=== PATIENT | female | born 1940 | race Caucasian/White ===

== ENCOUNTER 2018-01-27 13:29 | Observation (INO) ==
--- NOTE | 2018-01-27 13:53 | Emergency Department Note ---
Disposition Clinical Impression: Suicidal ideation Cellulitis Qualifiers: Site of cellulitis: unspecified site Qualified Code(s): L03.90 - Cellulitis, unspecified Disposition: Admitted As Inpatient Condition: Good Referrals: NONE,PCP [Primary Care Provider] - Forms: ED Satisfaction Letter Psych HPI - General Chief Complaint: ED Psychiatric Symptoms Stated Complaint: SI, leg pain Time Seen by Provider: 01/27/18 13:31 Source: EMS Mode of arrival: EMS Limitations: no limitations Nursing Notes Reviewed: Yes Vital Signs Reviewed: Yes - History of Present Illness HPI Narrative: 77-year-old female history of psoriasis presents to the ER with a complaint of suicidal ideation and right leg pain. Reports that she has had thoughts of harming herself before and that her son lives with her. She states that her right leg has been red for the last few days. No fevers nausea or vomiting at home. She still reports she has had some thoughts of harming herself. No history of suicide attempt in the past. No auditory or visual hallucinations. No other complaints. Pt complaint: suicidal ideation Onset (ago): day(s) Duration: constant History of similar episodes: No Improves with: none Worsens with: none Alleged intoxication: No Associated Psychiatric Symptoms: suicidal ideation Associated symptoms: Reports: denies other symptoms Traumatic symptoms: denies traumatic injury Treatments prior to arrival: none Self harm or harm to others: admits thoughts of self harm - Related Data Home Medications Medication Instructions Recorded Confirmed Buspirone HCl [Buspar] 10 mg PO BID 01/27/18 01/27/18 Levothyroxine [Synthroid] 100 mcg PO QAM 01/27/18 01/27/18 Lisinopril [Zestril] 5 mg PO DAILY 01/27/18 01/27/18 Melatonin 5 mg PO HS 01/27/18 01/27/18 Allergies Allergy/AdvReac Type Severity Reaction Status Date / Time aspirin AdvReac Nausea Verified 08/20/16 21:36 All systems ED: reviewed and negative except as stated. Constitutional: Denies: fever Cardiovascular: Denies: chest pain Respiratory: Denies: dyspnea Gastrointestinal: Denies: abdominal pain, nausea, vomiting Integumentary: Reports: lesions Past Medical History - Past Medical History Attestation: Yes The following information was validated with the patient. Source: patient Medical history: Reports: hyperlipidemia, hypertension, thyroid disease, other Surgical history: Reports: other Psychiatric history: Reports: anxiety, depression - Social History Smoking Status: Current every day smoker Smokeless Tobacco Status: No Alcohol use: Reports: none Drug use: Reports: none Physical Exam - General Limitations: no limitations General appearance: alert, in no apparent distress - Head Head exam: atraumatic, normocephalic - Eye Eye exam: Present: normal appearance - ENT ENT exam: normal exam - Neck Neck exam: Present: normal inspection - Chest Chest inspection: Present: normal inspection, symmetric chest wall rise - Respiratory Respiratory exam: Present: normal lung sounds bilaterally - Cardiovascular Cardiovascular exam: Present: regular rate, normal rhythm, normal heart sounds - Abdominal Exam Abdominal exam: Present: soft, Non-Tender. Absent: tenderness, distention, rigidity - Extremities Exam Extremities exam: Present: normal inspection, full ROM - Expanded Upper Extremity Exam Shoulder exam: Present: normal inspection, full ROM Arm exam: Present: normal inspection, full ROM Elbow exam: Present: normal inspection, full ROM Forearm/Wrist exam: Present: normal inspection, full ROM Hand exam: Present: normal inspection, full ROM - Expanded Lower Extremity Exam Hip/Pelvis exam: Present: normal inspection, full ROM Upper leg exam: Present: normal inspection, full ROM 1 - Plaque as well as erythema and warmth to the lateral leg Knee exam: Present: normal inspection, full ROM Lower leg exam: Present: normal inspection, full ROM Ankle exam: Present: normal inspection, full ROM Foot/toe exam: Present: normal inspection, full ROM - Skin Skin exam: Present: warm, dry, other (Plaques on the arms and legs) Course Course Narrative: Patient seen and examined. Vital signs reviewed. Continues to endorse some thoughts of suicidal ideation. Plan for labs for psychiatric evaluation. She also will require treatment for cellulitis of her right leg. - Consultations Consultation #1: Spoke with 1A requesting consult for suicidal ideation. Consult placed, admitted to hospitalist. Vital Signs Temperature 97.6 F 01/27/18 13:43 Pulse Rate 88 01/27/18 13:43 Respiratory Rate 18 01/27/18 13:43 Blood Pressure 157/81 01/27/18 13:43 O2 Sat by Pulse Oximetry 98 01/27/18 13:43 Temperature 97.6 F 01/27/18 13:43 Pulse Rate 88 01/27/18 13:43 Respiratory Rate 18 01/27/18 13:43 Blood Pressure 157/81 01/27/18 13:43 O2 Sat by Pulse Oximetry 98 01/27/18 13:43 Oxygen Delivery Oxygen Delivery Room Air Psych - MDM Narrative Medical decision making narrative: 77-year-old female presents with suicidal ideation and right leg cellulitis. Patient also demonstrates UTI. CT head negative. Labs reviewed. Psychiatric consult placed. Patient pink slipped for suicidal ideation. Admitted to the hospitalist service. - Lab Data Lab results reviewed: Yes I reviewed the patient's lab results. Result diagrams: 01/27/18 14:07 01/27/18 14:07 Lab Results 01/27/18 01/27/18 01/27/18 Range/Units 13:36 13:36 14:07 WBC 5.6 (4.3-11.1) K/mcL RBC 4.08 (3.82-4.97) M/mcL Hgb 13.0 (11.5-15.4) g/dL Hct 38.6 (35.3-44.9) % MCV 94.6 (83.0-100.0) fL MCH 31.9 (28.0-33.3) pg MCHC 33.7 (31.6-35.5) g/dL RDW 13.2 (11.5-14.5) % Plt Count 205 (140-400) K/mcL MPV 9.3 L (9.4-12.4) fL Immature Gran % 0.4 (0-4) % Seg Neutrophils % 56.5 % Lymphocytes % 27.9 % Monocytes % 11.5 % Eosinophils % 3.2 % Basophils % 0.5 % Neutrophils # 3.1 (1.6-8.9) K/mcL Lymphocytes # 1.6 (0.6-4.6) K/mcL Monocytes # 0.6 (0.0-1.3) K/mcL Eosinophils # 0.2 (0.0-0.6) K/mcL Basophils # 0.0 (0.0-0.2) K/mcL Sodium (136-145) mEq/L Potassium (3.5-5.1) mEq/L Chloride (98-107) mEq/L Carbon Dioxide (23-29) mEq/L BUN (8-23) mg/dL Creatinine (0.60-1.20) mg/dL Est GFR ( Amer) (> 60) Est GFR (Non-Af Amer) (> 60) BUN/Creatinine Ratio (6-26) Glucose (70-105) mg/dL Calculated Osmolality (280-300) Calcium (8.6-10.3) mg/dL TSH (0.340-5.600) mcIU/mL Urine Color Yellow (Yellow) Urine Clarity Clear (Clear) Urine pH 6.0 (5.0-8.0) pH Units Ur Specific [place] 1.025 (1.010-1.025) Urine Protein Trace (Neg-Trace) mg/dL Urine Glucose (UA) Normal (Normal) mg/dL Urine Ketones Negative (Negative) mg/dL Urine Blood Trace H (Negative) Urine Nitrite Negative (Negative) Urine Bilirubin Negative (Negative) Urine Urobilinogen Normal (Normal) mg/dL Ur Leukocyte Esterase Moderate H (Negative) Urine Microscopic RBC 0-3 (0-3) per hpf Urine Microscopic WBC 30-50 H (0-3) per hpf Ur Squamous Epith Cells None Seen (None-Few) per lpf Urine Bacteria Many H (None-Few) per hpf Hyaline Casts None Seen (None-Few) per lpf Salicylates (15.0-30.0) mg/dL Urine Opiates Screen Negative (Fdnknl=171) ng/mL Acetaminophen (10-20) mcg/mL Ur Barbiturates Screen Negative (Zpxaut=252) ng/mL Ur Phencyclidine Scrn Negative (Cutoff=25) ng/mL Ur Amphetamines Screen Negative (Vlrdlg=0895) ng/mL U Benzodiazepines Scrn Negative (Vxiugx=715) ng/mL Urine Cocaine Screen Negative (Cutoff= 300) ng/mL U Marijuana (THC) Screen Negative (Cutoff = 50) ng/mL Ur Drug Screen Interp See Below Ethyl Alcohol (Less than 10) mg/dL 01/27/18 Range/Units 14:07 WBC (4.3-11.1) K/mcL RBC (3.82-4.97) M/mcL Hgb (11.5-15.4) g/dL Hct (35.3-44.9) % MCV (83.0-100.0) fL MCH (28.0-33.3) pg MCHC (31.6-35.5) g/dL RDW (11.5-14.5) % Plt Count (140-400) K/mcL MPV (9.4-12.4) fL Immature Gran % (0-4) % Seg Neutrophils % % Lymphocytes % % Monocytes % % Eosinophils % % Basophils % % Neutrophils # (1.6-8.9) K/mcL Lymphocytes # (0.6-4.6) K/mcL Monocytes # (0.0-1.3) K/mcL Eosinophils # (0.0-0.6) K/mcL Basophils # (0.0-0.2) K/mcL Sodium 140 (136-145) mEq/L Potassium 3.8 (3.5-5.1) mEq/L Chloride 108 H (98-107) mEq/L Carbon Dioxide 24 (23-29) mEq/L BUN 19 (8-23) mg/dL Creatinine 0.83 (0.60-1.20) mg/dL Est GFR ( Amer) > 60 (> 60) Est GFR (Non-Af Amer) > 60 (> 60) BUN/Creatinine Ratio 23 (6-26) Glucose 98 (70-105) mg/dL Calculated Osmolality 292 (280-300) Calcium 8.9 (8.6-10.3) mg/dL TSH 0.036 L (0.340-5.600) mcIU/mL Urine Color (Yellow) Urine Clarity (Clear) Urine pH (5.0-8.0) pH Units Ur Specific [place] (1.010-1.025) Urine Protein (Neg-Trace) mg/dL Urine Glucose (UA) (Normal) mg/dL Urine Ketones (Negative) mg/dL Urine Blood (Negative) Urine Nitrite (Negative) Urine Bilirubin (Negative) Urine Urobilinogen (Normal) mg/dL Ur Leukocyte Esterase (Negative) Urine Microscopic RBC (0-3) per hpf Urine Microscopic WBC (0-3) per hpf Ur Squamous Epith Cells (None-Few) per lpf Urine Bacteria (None-Few) per hpf Hyaline Casts (None-Few) per lpf Salicylates < 2.5 L (15.0-30.0) mg/dL Urine Opiates Screen (Lmytzm=855) ng/mL Acetaminophen < 10 L (10-20) mcg/mL Ur Barbiturates Screen (Rbuqab=167) ng/mL Ur Phencyclidine Scrn (Cutoff=25) ng/mL Ur Amphetamines Screen (Qdipqu=1002) ng/mL U Benzodiazepines Scrn (Opkpqp=079) ng/mL Urine Cocaine Screen (Cutoff= 300) ng/mL U Marijuana (THC) Screen (Cutoff = 50) ng/mL Ur Drug Screen Interp Ethyl Alcohol < 10 (Less than 10) mg/dL - Radiology Data Radiology results reviewed: Yes I reviewed the patient's radiology results. Chest X-Ray 01/27/18 15:21 IMPRESSION: No evidence of acute cardiopulmonary disease. D/ / 01/27/2018 16:19:41 Teto Patel MD / earcierra Interpreting Provider: Teto Patel MD Head CT 01/27/18 15:21 IMPRESSION: No acute intracranial abnormality. Oawc-hx-zbygjath generalized atrophy appropriate for age. Atrophy somewhat more prominent involving the temporal lobes. Sudi-st-eqwnmhkc chronic ischemic changes also age-appropriate. D/ / Devonte Iglesias MD / Devonte Iglesias MD Interpreting Provider: Devonte Iglesias MD Psychiatric Medical Clearance - Medical Clearance Checklist Medical History: No Social History Section defined Current Vitals: Last Vital Signs Temp 97.6 F 01/27/18 13:43 Pulse 88 01/27/18 13:43 Resp 18 01/27/18 13:43 BP 157/81 01/27/18 13:43 Pulse Ox 98 01/27/18 13:43 Psychiatric Lab Panel: Drug Levels and Toxicity 01/27/18 01/27/18 13:36 14:07 Urine Opiates Screen Negative Acetaminophen < 10 L Ur Barbiturates Screen Negative Ur Phencyclidine Scrn Negative Ur Amphetamines Screen Negative U Benzodiazepines Scrn Negative Urine Cocaine Screen Negative U Marijuana (THC) Screen Negative Ethyl Alcohol < 10 Abnormal Labs: Abnormal lab results MPV 9.3 fL (9.4-12.4) L 01/27/18 14:07 Chloride 108 mEq/L (98-107) H 01/27/18 14:07 TSH 0.036 mcIU/mL (0.340-5.600) L 01/27/18 14:07 Urine Blood Trace (Negative) H 01/27/18 13:36 Ur Leukocyte Esterase Moderate (Negative) H 01/27/18 13:36 Urine Microscopic WBC 30-50 per hpf (0-3) H 01/27/18 13:36 Urine Bacteria Many per hpf (None-Few) H 01/27/18 13:36 Salicylates < 2.5 mg/dL (15.0-30.0) L 01/27/18 14:07 Acetaminophen < 10 mcg/mL (10-20) L 01/27/18 14:07 Statement of Medical Clearance: I have evaluated the patient, reviewed diagnostic information, and certify that the patient's medical condition is sufficiently stable that transfer to the psychiatric unit does not pose a significant risk of deterioration. Alden - Alden Situation: Demographics, MOA Background: Presenting Complaint, Relevant PMH, Meds, & Allergies Assessment: Course and respsone to treatment, Exam Concerns, Patient/Family Expectation, Pertinant Lab Results Recommendation: Barrier(s) to disposition, Recommendation based on pending studies, treatments, or consults Alden Report Given to: Dr. Ivelisse Ruano Repor Time: 17:31
[2018-01-27 14:23] LABS: Basophils % 0.5 %; Eosinophils # 0.2 K/mcL (0.0-0.6); Eosinophils % 3.2 %; Hematocrit 38.6 % (35.3-44.9); Immature Granulocytes % 0.4 % (0-4); Lymphocytes # 1.6 K/mcL (0.6-4.6); Lymphocytes % 27.9 %; Mean Corpuscular HGB Conc 33.7 g/dL (31.6-35.5); Mean Corpuscular Hemoglobin 31.9 pg (28.0-33.3); Mean Corpuscular Volume 94.6 fL (83.0-100.0); Mean Platelet Volume 9.3 fL (9.4-12.4); Monocytes # 0.6 K/mcL (0.0-1.3); Monocytes % 11.5 %; Neutrophils # 3.1 K/mcL (1.6-8.9); Platelet Count 205 K/mcL (140-400); Red Blood Count 4.08 M/mcL (3.82-4.97); Red Cell Distribution Width 13.2 % (11.5-14.5); Segmented Neutrophils % 56.5 %
[2018-01-27 14:43] LABS: Bilirubin,Urine Negative (Negative); Blood,Urine Trace (Negative); Clarity,Urine Clear (Clear); Color,Urine Yellow (Yellow); Glucose,Urine (UA) Normal (Normal); Ketones,Urine Negative (Negative); Leukocyte Esterase,Urine Moderate (Negative); Nitrite,Urine Negative (Negative); Protein,Urine Trace mg/dL (Neg-Trace); Specific Gravity,Urine 1.025 (1.010-1.025); Urobilinogen,Urine Normal (Normal)
[2018-01-27 14:43] LABS: Acetaminophen < 10 mcg/mL (10-20); BUN/Creatinine Ratio 23 (6-26); Blood Urea Nitrogen 19 mg/dL (8-23); Calcium 8.9 mg/dL (8.6-10.3); Carbon Dioxide 24 mEq/L (23-29); Chloride 108 mEq/L (98-107); Ethanol < 10 mg/dL (Less than 10); Glucose 98 mg/dL (70-105); Osmolality,Calculated 292 (280-300); Potassium 3.8 mEq/L (3.5-5.1); Salicylate < 2.5 mg/dL (15.0-30.0); Sodium 140 mEq/L (136-145); eGFR For Non-African Americans > 60 (> 60)
[2018-01-27 14:49] LABS: Bacteria,Urine Many per hpf (None-Few); Hyaline Casts,Urine None Seen per lpf (None-Few); Squamous Epithelial Cell,Urine None Seen per lpf (None-Few); WBC,Urine 30-50 per hpf (0-3)
[2018-01-27 14:54] LABS: Thyroid Stimulating Hormone 0.036 mcIU/mL (0.340-5.600)
[2018-01-27 14:57] LABS: Amphetamine Screen,Urine Negative ng/mL (Cutoff=1000); Barbiturate Screen,Urine Negative ng/mL (Cutoff=200); Benzodiazepines Screen,Urine Negative ng/mL (Cutoff=200); Cannabinoid Screen,Urine Negative ng/mL (Cutoff = 50); Cocaine Screen,Urine Negative ng/mL (Cutoff= 300); Opiate Screen,Urine Negative ng/mL (Cutoff=300); Phencyclidine Screen,Urine Negative ng/mL (Cutoff=25)
[2018-01-27 15:22] LABS: RBC,Urine 0-3 per hpf (0-3)
[2018-01-27] MEDS ORDERED: cefTRIAXone 1,000 MG in Water for inj. (sterile) 20 ML 10 ML IVP ONE (16:00)
--- NOTE | 2018-01-27 16:05 | Emergency Department Note ---
Disposition Clinical Impression: Suicidal ideation, Cellulitis Disposition: Still a Patient Condition: Fair Referrals: NONE,PCP [Primary Care Provider] - Forms: ED Satisfaction Letter General Adult HPI - General Chief complaint: ED Psychiatric Symptoms Stated complaint: SI, leg pain Time Seen by Provider: 01/27/18 13:31 Source: EMS Mode of arrival: EMS Limitations: no limitations Nursing Notes Reviewed: Yes Vital Signs Reviewed: Yes - History of Present Illness Pain Scale: 0 - Related Data Home Medications Medication Instructions Recorded Confirmed Buspirone HCl [Buspar] 10 mg PO BID 01/27/18 01/27/18 Levothyroxine [Synthroid] 100 mcg PO QAM 01/27/18 01/27/18 Lisinopril [Zestril] 5 mg PO DAILY 01/27/18 01/27/18 Melatonin 5 mg PO HS 01/27/18 01/27/18 Allergies Allergy/AdvReac Type Severity Reaction Status Date / Time aspirin AdvReac Nausea Verified 08/20/16 21:36 Constitutional: Denies: fever Cardiovascular: Denies: chest pain Respiratory: Denies: dyspnea Gastrointestinal: Denies: abdominal pain, nausea, vomiting Integumentary: Reports: lesions Past Medical History - Past Medical History Medical history: Reports: hyperlipidemia, hypertension, thyroid disease, other Surgical history: Reports: other Psychiatric history: Reports: anxiety, depression - Social History Smoking Status: Current every day smoker Smokeless Tobacco Status: No Alcohol use: Reports: none Drug use: Reports: none Physical Exam - General Limitations: no limitations General appearance: alert, in no apparent distress Course Vital Signs Temperature 97.6 F 01/27/18 13:43 Pulse Rate 88 01/27/18 13:43 Respiratory Rate 18 01/27/18 13:43 Blood Pressure 157/81 01/27/18 13:43 O2 Sat by Pulse Oximetry 98 01/27/18 13:43 Temperature 97.6 F 01/27/18 13:43 Pulse Rate 88 01/27/18 13:43 Respiratory Rate 18 01/27/18 13:43 Blood Pressure 157/81 01/27/18 13:43 O2 Sat by Pulse Oximetry 98 01/27/18 13:43 Oxygen Delivery Oxygen Delivery Room Air Medical Decision Making - Lab Data Result diagrams: 01/27/18 14:07 01/27/18 14:07 Lab Results 01/27/18 01/27/1818 Range/Units 13:36 13:36 14:07 WBC 5.6 (4.3-11.1) K/mcL RBC 4.08 (3.82-4.97) M/mcL Hgb 13.0 (11.5-15.4) g/dL Hct 38.6 (35.3-44.9) % MCV 94.6 (83.0-100.0) fL MCH 31.9 (28.0-33.3) pg MCHC 33.7 (31.6-35.5) g/dL RDW 13.2 (11.5-14.5) % Plt Count 205 (140-400) K/mcL MPV 9.3 L (9.4-12.4) fL Immature Gran % 0.4 (0-4) % Seg Neutrophils % 56.5 % Lymphocytes % 27.9 % Monocytes % 11.5 % Eosinophils % 3.2 % Basophils % 0.5 % Neutrophils # 3.1 (1.6-8.9) K/mcL Lymphocytes # 1.6 (0.6-4.6) K/mcL Monocytes # 0.6 (0.0-1.3) K/mcL Eosinophils # 0.2 (0.0-0.6) K/mcL Basophils # 0.0 (0.0-0.2) K/mcL Sodium (136-145) mEq/L Potassium (3.5-5.1) mEq/L Chloride (98-107) mEq/L Carbon Dioxide (23-29) mEq/L BUN (8-23) mg/dL Creatinine (0.60-1.20) mg/dL Est GFR ( Amer) (> 60) Est GFR (Non-Af Amer) (> 60) BUN/Creatinine Ratio (6-26) Glucose (70-105) mg/dL Calculated Osmolality (280-300) Calcium (8.6-10.3) mg/dL TSH (0.340-5.600) mcIU/mL Urine Color Yellow (Yellow) Urine Clarity Clear (Clear) Urine pH 6.0 (5.0-8.0) pH Units Ur Specific [place] 1.025 (1.010-1.025) Urine Protein Trace (Neg-Trace) mg/dL Urine Glucose (UA) Normal (Normal) mg/dL Urine Ketones Negative (Negative) mg/dL Urine Blood Trace H (Negative) Urine Nitrite Negative (Negative) Urine Bilirubin Negative (Negative) Urine Urobilinogen Normal (Normal) mg/dL Ur Leukocyte Esterase Moderate H (Negative) Urine Microscopic RBC 0-3 (0-3) per hpf Urine Microscopic WBC 30-50 H (0-3) per hpf Ur Squamous Epith Cells None Seen (None-Few) per lpf Urine Bacteria Many H (None-Few) per hpf Hyaline Casts None Seen (None-Few) per lpf Salicylates (15.0-30.0) mg/dL Urine Opiates Screen Negative (Qseisz=536) ng/mL Acetaminophen (10-20) mcg/mL Ur Barbiturates Screen Negative (Ltluef=121) ng/mL Ur Phencyclidine Scrn Negative (Cutoff=25) ng/mL Ur Amphetamines Screen Negative (Hehsfc=7925) ng/mL U Benzodiazepines Scrn Negative (Roivzv=733) ng/mL Urine Cocaine Screen Negative (Cutoff= 300) ng/mL U Marijuana (THC) Screen Negative (Cutoff = 50) ng/mL Ur Drug Screen Interp See Below Ethyl Alcohol (Less than 10) mg/dL 01/27/18 Range/Units 14:07 WBC (4.3-11.1) K/mcL RBC (3.82-4.97) M/mcL Hgb (11.5-15.4) g/dL Hct (35.3-44.9) % MCV (83.0-100.0) fL MCH (28.0-33.3) pg MCHC (31.6-35.5) g/dL RDW (11.5-14.5) % Plt Count (140-400) K/mcL MPV (9.4-12.4) fL Immature Gran % (0-4) % Seg Neutrophils % % Lymphocytes % % Monocytes % % Eosinophils % % Basophils % % Neutrophils # (1.6-8.9) K/mcL Lymphocytes # (0.6-4.6) K/mcL Monocytes # (0.0-1.3) K/mcL Eosinophils # (0.0-0.6) K/mcL Basophils # (0.0-0.2) K/mcL Sodium 140 (136-145) mEq/L Potassium 3.8 (3.5-5.1) mEq/L Chloride 108 H (98-107) mEq/L Carbon Dioxide 24 (23-29) mEq/L BUN 19 (8-23) mg/dL Creatinine 0.83 (0.60-1.20) mg/dL Est GFR ( Amer) > 60 (> 60) Est GFR (Non-Af Amer) > 60 (> 60) BUN/Creatinine Ratio 23 (6-26) Glucose 98 (70-105) mg/dL Calculated Osmolality 292 (280-300) Calcium 8.9 (8.6-10.3) mg/dL TSH 0.036 L (0.340-5.600) mcIU/mL Urine Color (Yellow) Urine Clarity (Clear) Urine pH (5.0-8.0) pH Units Ur Specific [place] (1.010-1.025) Urine Protein (Neg-Trace) mg/dL Urine Glucose (UA) (Normal) mg/dL Urine Ketones (Negative) mg/dL Urine Blood (Negative) Urine Nitrite (Negative) Urine Bilirubin (Negative) Urine Urobilinogen (Normal) mg/dL Ur Leukocyte Esterase (Negative) Urine Microscopic RBC (0-3) per hpf Urine Microscopic WBC (0-3) per hpf Ur Squamous Epith Cells (None-Few) per lpf Urine Bacteria (None-Few) per hpf Hyaline Casts (None-Few) per lpf Salicylates < 2.5 L (15.0-30.0) mg/dL Urine Opiates Screen (Nyetqu=864) ng/mL Acetaminophen < 10 L (10-20) mcg/mL Ur Barbiturates Screen (Mfqitz=174) ng/mL Ur Phencyclidine Scrn (Cutoff=25) ng/mL Ur Amphetamines Screen (Zozvmd=2852) ng/mL U Benzodiazepines Scrn (Nbexia=831) ng/mL Urine Cocaine Screen (Cutoff= 300) ng/mL U Marijuana (THC) Screen (Cutoff = 50) ng/mL Ur Drug Screen Interp Ethyl Alcohol < 10 (Less than 10) mg/dL Attestation Statement - Attestation Attestation: I, Carl Ferrara, examined this patient and my medical decision-making was reviewed with the JEWEL SORTER/PA/Advanced Practice Nurse/Resident Physician. I agree with the documented findings, disposition and treatment plan as described except to the extent set forth below. 77-year-old female presents emergency Department with concerns of suicidal ideation as well as pain to the right lower extremity. Patient and family have noted that the right lower extremity was increasingly erythematous and painful over the past few days. Patient has a history of plaque psoriasis which is uncontrolled. Patient became upset when family tried to take her to the primary care physician's office today. She made suicidal statements which then prompted the family to call EMS. On physical exam the patient has erythema to the right lateral distal lower extremity consistent with cellulitis. Patient will be admitted to the hospital for further medical clearance until she can have behavioral health evaluation.
--- NOTE | 2018-01-27 18:41 | Internal Med History&Physical ---
Date of Encounter: 01/27/18 Time of Encounter: 18:37 Internal Medicine - H&P: HPI Chief complaint: suicidal ideation/ rash on right leg History of present illness: Ms. Flanagan is a 77 year old female with history of anxiety depression and hypothyroidism presented to the ED with suicidal ideation. Patient is not compliant with providing history was the history was obtained from the ED physician note. Patient and family have noted that the right lower extremity was increasingly erythematous and painful over the past few days. she has ? history of psoriasis not on any medications. currently she is not cooperative with providing any history however she denies SI or HI she denies fever, chills, headache, head trauma, vision changes, CP, SOB, N/V/D , heat or cold intolerance. she reports that she was given a cream for her skin but cannot recall the name. Past Med Surg Social Fam HX - Past Medical History Medical history: hyperlipidemia, hypertension, thyroid disease, other Additional medical history: psoriasis Psychiatric history: anxiety, depression - Past Surgical History Surgical History: other Additional surgical history: tubal ligation - Social History Smoking Status: Current every day smoker Smokeless Tobacco Status: No Alcohol use: none Drug use: none - Family History Mother Living Status: Hx Family Cardiac Disorders: Yes Internal Medicine - H&P: Meds Buspirone HCl [Buspar] 10 mg PO BID 01/27/18 [History] Levothyroxine [Synthroid] 100 mcg PO QAM 01/27/18 [History] Lisinopril [Zestril] 5 mg PO DAILY 01/27/18 [History] Melatonin 5 mg PO HS 01/27/18 [History] 3 Allergy/AdvReac Type Severity Reaction Status Date / Time aspirin AdvReac Nausea Verified 08/20/16 21:36 All Systems PM: review of systems was performed and is negative for pertinent findings except as documented above in the HPI. - Constitutional Vitals: Temp Pulse Resp BP Pulse Ox 97.6 F 83 18 131/66 99 01/27/18 13:43 01/27/18 17:33 01/27/18 17:33 01/27/18 17:33 01/27/18 17:33 - Other Additional findings: General: Patient is alert, oriented, no acute distress, cachectic Head: atraumatic, normocephalic, Eye: normal appearance, PERRL, no scleral icterus, no conjunctival injection ENT: mucous membranes moist, normal external ear exam Neck: normal inspection, trachea midline, full ROM, no carotid bruits Chest: normal inspection, symmetric chest rise Respiratory: Good respiratory effort. Bilateral breath sounds are clear without wheezing, crackles, or rhonchi. Cardiovascular: Regular rate and rhythm. No clicks, rubs, gallops, or murmors. Normal heart sounds. Abdomen: Bowel sounds present normoactive x-4 quadrants. Abdomen is soft, nondistended. Epigastric tenderness. No guarding or rebound. No organomegaly noted, Musculoskeletal: Spontaneously moving all extremities. Skin: warm, dry, intact. has scratch virk on bilateral arms and hands, in addition there is a 12x7 cm area on the lateral right lower extremity below knee with some scaling, erythamatoues and is warm to touch Neuro: Alert and oriented x4. Sensation light touch intact. Cranial nerves II- 12 is intact. Not aphasic, gait is steady, Psych: Patient's affect is normal , denies SI or HI Internal Med - H&P Results - Labs CBC & Chem 7: 01/27/18 14:07 01/27/18 14:07 - Assessment and plan (1) Cellulitis of right leg Current Visit: Yes Status: Acute Assessment and plan: will start patient on vancomycin and zosyn for cellulitis of the right leg consider ID consult in the AM Blood cx DVT study of the lower extremities to rule out DVT NSt at 125 ml/hr for 12 hrs will follow AM labs will send HIV (2) Suicidal ideation Current Visit: Yes Status: Acute Assessment and plan: psycho was consulted in the ED follow recommnedations 1:1 obbservation for suicidal ideation TSH and free t4 will continue home buspirone - follow psych for further recs EKG for QT (3) UTI (urinary tract infection), uncomplicated Current Visit: Yes Status: Acute Assessment and plan: patient is on Zosyn for cellulitis which covers for UTI follow urine cx NS at 125 ml/hr for 12 hrs (4) Hypertension Current Visit: Yes Status: Acute Assessment and plan: continue with lisinopril watch electrolytes vitals A4H Qualifiers: Hypertension type: essential hypertension Qualified Code(s): I10 - Essential (primary) hypertension (5) Hypothyroidism Current Visit: Yes Status: Acute Assessment and plan: TSH is low will send free t4 took morning synthroid dose 100 mcg, consider adjusting dosage based on Free T4 Qualifiers: Hypothyroidism type: acquired Qualified Code(s): E03.9 - Hypothyroidism, unspecified (6) DVT prophylaxis Current Visit: Yes Status: Acute Assessment and plan: heparin 5000 units Q8H SC (7) Cachectic Current Visit: Yes Status: Acute Assessment and plan: BMI 16.9 nutrition consult sent TSH /free T4 - Time Spent With Patient Total time spent is greater than 50% in coordination of care (as documented) at patient's floor/unit and/or counseling patient:
[2018-01-27] MEDS ORDERED: *HR* LORazepam 2 MG/ML VIAL IVP PRN (20:54)
[2018-01-27] MEDS ORDERED: *HR* LORazepam 2 MG/ML VIAL IM STA (21:24)
--- NOTE | 2018-01-27 21:33 | Event Note ---
Date of Encounter: 01/27/18 Time of Encounter: 20:08 Notified by RN at 20:08 the patient is trying to leave the medical floor, pulled out her IV, and is very restless. Of note, patient was previously pink slipped in the emergency department due to suicidal ideation. Patient's home health caregiver witnessed the patient punching herself in the abdomen and leg stating she "I want to kill myself." Patient has severe cellulitis on her leg and progressively worsening dementia. Patient is disoriented to time and date. She is oriented to self, location, and recalls the president's name. Case discussed with patient's daughter, Jacqueline Felipe and her grandson (LARRYA), who both confirm the patient's history of present illness and suicidal ideation. Patient has never tried to harm herself in the past and currently lives with her son who is her primary caregiver. We will continue involuntary hold at this time. Sitter at bedside. Ativan 1 mg IM ordered. We will re-establish IV access in continue Ativan 1 mg IV every 2 hours when necessary for agitation. Family denies the patient having a history of alcohol dependence, but she smokes up to 1.5 packs per day. Nicotine patch and Melatonin prn insomnia were ordered.
[2018-01-27] MEDS: *HR* Heparin 5,000 UNIT/ML VIAL SQ SCH (21:53)
[2018-01-27] MEDS: Melatonin 3 MG TABLET PO SCH (21:54)
[2018-01-27] MEDS: 0.9 % Sodium Chloride 1,000 ML IVC SCH (21:56)
[2018-01-27] MEDS: Piperacillin/Tazobactam 3.375 GM in 0.9 % Sodium Chloride Mini Bag 100 ML IVPB SCH (23:42)
[2018-01-28] MEDS: *HR* Heparin 5,000 UNIT/ML VIAL SQ SCH ×3 (06:15→21:05)
[2018-01-28] MEDS: 0.9 % Sodium Chloride 1,000 ML IVC SCH (06:19)
[2018-01-28 07:23] LABS: Basophils % 0.7 %; Eosinophils # 0.2 K/mcL (0.0-0.6); Eosinophils % 3.5 %; Hematocrit 36.7 % (35.3-44.9); Hemoglobin 12.1 g/dL (11.5-15.4); Immature Granulocytes % 0.4 % (0-4); Lymphocytes # 1.7 K/mcL (0.6-4.6); Lymphocytes % 37.3 %; Mean Corpuscular Volume 94.1 fL (83.0-100.0); Mean Platelet Volume 9.4 fL (9.4-12.4); Monocytes # 0.5 K/mcL (0.0-1.3); Monocytes % 10.1 %; Neutrophils # 2.2 K/mcL (1.6-8.9); Platelet Count 194 K/mcL (140-400); Red Cell Distribution Width 13.4 % (11.5-14.5)
[2018-01-28 07:42] LABS: BUN/Creatinine Ratio 24 (6-26); Blood Urea Nitrogen 19 mg/dL (8-23); Calcium 8.5 mg/dL (8.6-10.3); Carbon Dioxide 25 mEq/L (23-29); Chloride 113 mEq/L (98-107); Glucose 76 mg/dL (70-105); Magnesium 2.1 mg/dL (1.6-2.6); Osmolality,Calculated 295 (280-300); Potassium 4.1 mEq/L (3.5-5.1); Sodium 142 mEq/L (136-145); eGFR For Non-African Americans > 60 (> 60)
[2018-01-28] MEDS: Nicotine 14 MG PATCH.TD24 TD SCH ×2 (08:05→21:05)
[2018-01-28] MEDS: Piperacillin/Tazobactam 3.375 GM in 0.9 % Sodium Chloride Mini Bag 100 ML IVPB SCH ×2 (09:15→15:21)
--- NOTE | 2018-01-28 11:10 | Consult Note ---
Date of Encounter: 01/28/18 Time of Encounter: 11:08 History of Present Illness Requesting Physician: Júnior Oviedo MD Reason for consult: SI History of present illness: Ms. Flanagan is a 77 year old female with no past psychiatric history admitted to the medical floor for medical workup and cellulitis. Psychiatry was consulted for suicide ideations her notes that were reviewed patient had been hitting herself and reported suicide ideations with no plan or attempt. Today this provider saw patient with her daughter at bedside as well as her niece at the bedside. Patient reports that she is not suicidal and reports that if she was she would have already done it and reports that she just said she was suicidal because she was in pain and reports she was frustrated she reports "I did not mean it". Discussed with patient's daughter and niece who also reported that patient would never hurt herself and they report no safety concerns at this time either. Patient's daughter reports that there is a lot of family stress going on at home in regards to patient's son and [id number] living with them which frustrates patient then Makes her have some anxiety. Once again patient reported no SI or HI no safety concerns she reports that she is doing good and hopes to get medically. Since that she can go home. Patient's daughter would like patient to come home with her for a few days prior to going to her home. CC: Júnior Oviedo MD Past Med Surg Social Fam HX - Past Medical History Medical history: hyperlipidemia, hypertension, thyroid disease, other - Past Psychiatric History Psychiatric history: Reports: no psych history Family psychiatric history: No Family History of Suicide: None - Past Surgical History Surgical History: other - Social History Smoking Status: Current every day smoker Smokeless Tobacco Status: No Alcohol use: none Drug use: none - Family History Mother Living Status: Hx Family Cardiac Disorders: Yes Medications & Allergies Buspirone HCl [Buspar] 10 mg PO BID 01/27/18 [History] Levothyroxine [Synthroid] 100 mcg PO QAM 01/27/18 [History] Lisinopril [Zestril] 5 mg PO DAILY 01/27/18 [History] Melatonin 5 mg PO HS 01/27/18 [History] 3 Allergy/AdvReac Type Severity Reaction Status Date / Time aspirin AdvReac Nausea Verified 02/15/17 21:36 Review of Systems Psychiatric: Reports: anxiety Psychiatry Exam - Constitutional Vitals: Temp Pulse Resp BP Pulse Ox 98.2 F 73 19 167/79 96 01/28/18 07:50 01/28/18 07:50 01/28/18 07:50 01/28/18 07:50 01/28/18 07:50 General appearance: malnourished, thin - Musculoskeletal Strength & Tone: mild weakness - Psychiatric Patient Orientation: Yes Person, Yes Time, Yes Place, Yes Circumstance Level of alertness: Alert Behavior: calm, cooperative Psychomotor activity: Normal Eye Contact: Maintains Eye Contact Mood Description: Euthymic/stable Affect description: congruent with mood Speech Volume: Normal Speech pattern: normal rate, normal rhythm, normal tone Language & Vocabulary: consistent with education Thought Process: Intact, Logical, Linear, Goal Oriented Thought Content: Yes Intact Attention Span Ability: Capable of Focused Attention, Capable of Sustained Attention Memory Description: Grossly Intact, Immediate Intact Patient Reliability: Reliable Historian Fund of knowledge: Yes average Intelligence Estimate: Average Judgment: Fair Insight: Full Results - Labs Labs: Laboratory Last Values WBC 4.6 K/mcL (4.3-11.1) 01/28/18 07:03 RBC 3.90 M/mcL (3.82-4.97) 01/28/18 07:03 Hgb 12.1 g/dL (11.5-15.4) 01/28/18 07:03 Hct 36.7 % (35.3-44.9) 01/28/18 07:03 MCV 94.1 fL (83.0-100.0) 01/28/18 07:03 MCH 31.0 pg (28.0-33.3) 01/28/18 07:03 MCHC 33.0 g/dL (31.6-35.5) 01/28/18 07:03 RDW 13.4 % (11.5-14.5) 01/28/18 07:03 Plt Count 194 K/mcL (140-400) 01/28/18 07:03 MPV 9.4 fL (9.4-12.4) 01/28/18 07:03 Immature Gran % 0.4 % (0-4) 01/28/18 07:03 Seg Neutrophils % 48.0 % 01/28/18 07:03 Lymphocytes % 37.3 % 01/28/18 07:03 Monocytes % 10.1 % 01/28/18 07:03 Eosinophils % 3.5 % 01/28/18 07:03 Basophils % 0.7 % 01/28/18 07:03 Neutrophils # 2.2 K/mcL (1.6-8.9) 01/28/18 07:03 Lymphocytes # 1.7 K/mcL (0.6-4.6) 01/28/18 07:03 Monocytes # 0.5 K/mcL (0.0-1.3) 01/28/18 07:03 Eosinophils # 0.2 K/mcL (0.0-0.6) 01/28/18 07:03 Basophils # 0.0 K/mcL (0.0-0.2) 01/28/18 07:03 Sodium 142 mEq/L (136-145) 01/28/18 07:03 Potassium 4.1 mEq/L (3.5-5.1) 01/28/18 07:03 Chloride 113 mEq/L (98-107) H 01/28/18 07:03 Carbon Dioxide 25 mEq/L (23-29) 01/28/18 07:03 BUN 19 mg/dL (8-23) 01/28/18 07:03 Creatinine 0.78 mg/dL (0.60-1.20) 01/28/18 07:03 Est GFR ( Amer) > 60 (> 60) 01/28/18 07:03 Est GFR (Non-Af Amer) > 60 (> 60) 01/28/18 07:03 BUN/Creatinine Ratio 24 (6-26) 01/28/18 07:03 Glucose 76 mg/dL (70-105) 01/28/18 07:03 Calculated Osmolality 295 (280-300) 01/28/18 07:03 Calcium 8.5 mg/dL (8.6-10.3) L 01/28/18 07:03 Phosphorus 4.0 mg/dL (2.7-4.5) 01/28/18 07:03 Magnesium 2.1 mg/dL (1.6-2.6) 01/28/18 07:03 TSH 0.036 mcIU/mL (0.340-5.600) L 01/27/18 14:07 Free T4 1.69 ng/dl (0.70-2.00) 01/27/18 14:07 Urine Color Yellow (Yellow) 01/27/18 13:36 Urine Clarity Clear (Clear) 01/27/18 13:36 Urine pH 6.0 pH Units (5.0-8.0) 01/27/18 13:36 Ur Specific [place] 1.025 (1.010-1.025) 01/27/18 13:36 Urine Protein Trace mg/dL (Neg-Trace) 01/27/18 13:36 Urine Glucose (UA) Normal mg/dL (Normal) 01/27/18 13:36 Urine Ketones Negative mg/dL (Negative) 01/27/18 13:36 Urine Blood Trace (Negative) H 01/27/18 13:36 Urine Nitrite Negative (Negative) 01/27/18 13:36 Urine Bilirubin Negative (Negative) 01/27/18 13:36 Urine Urobilinogen Normal mg/dL (Normal) 01/27/18 13:36 Ur Leukocyte Esterase Moderate (Negative) H 01/27/18 13:36 Urine Microscopic RBC 0-3 per hpf (0-3) 01/27/18 13:36 Urine Microscopic WBC 30-50 per hpf (0-3) H 01/27/18 13:36 Ur Squamous Epith Cells None Seen per lpf (None-Few) 01/27/18 13:36 Urine Bacteria Many per hpf (None-Few) H 01/27/18 13:36 Hyaline Casts None Seen per lpf (None-Few) 01/27/18 13:36 Salicylates < 2.5 mg/dL (15.0-30.0) L 01/27/18 14:07 Urine Opiates Screen Negative ng/mL (Kcvcbj=913) 01/27/18 13:36 Acetaminophen < 10 mcg/mL (10-20) L 01/27/18 14:07 Ur Barbiturates Screen Negative ng/mL (Zmizkf=252) 01/27/18 13:36 Ur Phencyclidine Scrn Negative ng/mL (Cutoff=25) 01/27/18 13:36 Ur Amphetamines Screen Negative ng/mL (Rrszxu=1820) 01/27/18 13:36 U Benzodiazepines Scrn Negative ng/mL (Ckulyu=874) 01/27/18 13:36 Urine Cocaine Screen Negative ng/mL (Cutoff= 300) 01/27/18 13:36 U Marijuana (THC) Screen Negative ng/mL (Cutoff = 50) 01/27/18 13:36 Ur Drug Screen Interp See Below 01/27/18 13:36 Ethyl Alcohol < 10 mg/dL (Less than 10) 01/27/18 14:07 Consult Discharge Plan - Plan Additional Instructions: Patient is not suicidal or homicidal at this time patient and patient's family report no safety concerns from a psychiatric standpoint patient can be discharged would recommend rehabilitation for patient if needed. Referrals: NONE,PCP [Primary Care Provider] -
--- NOTE | 2018-01-28 14:11 | Internal Med Progress Note ---
Date of Encounter: 01/28/18 Time of Encounter: 14:30 - Assessment and plan (1) Cellulitis of right leg Current Visit: Yes Status: Acute Assessment and plan: Symptomatic with lower extremity erythema, warmth and tenderness; right worse than left. Appears to have psoriasis with superimposed cellulitis. No drainage to culture. Continue IV Vanco and Zosyn. De-escalate as clinically improves. (2) Suicidal ideation Current Visit: Yes Status: Acute Assessment and plan: Apparently made SI comments in the ED. Evaluated by psychiatry who did not feel patient was arm/risk to self or others. (3) UTI (urinary tract infection), uncomplicated Current Visit: Yes Status: Acute Assessment and plan: UA concerning for UTI. Continue IV Zosyn. Follow urine culture and narrow accordingly (4) Dementia Current Visit: Yes Status: Acute Assessment and plan: has known hx dementia per daughter with known episodes of combative behavior. Head CT with chronic, age-appropriate changes. Appears neurologically intact. Alert and oriented however mentation appears to fluctuate and patient does have periods of aggressive/combative behavior. Daughter at bedside and his POA; verbalizes concern for patient's home situation as patient lives with 2 sons and [id number] who are drug addicts. Daughter/POA would like patient to discharge home with her for a couple days however patient is refusing at this time. Patient was deemed not to be a risk to self or others by psychiatry however I do not feel patient has decision-making capacity at this time. Continue one-to-one sitter. Social work consult. PT/OT consult. Qualifiers: Dementia type: Alzheimer's disease Alzheimer's disease onset: unspecified onset Dementia behavioral disturbance: with behavioral disturbance Qualified Code(s): G30.9 - Alzheimer's disease, unspecified; F02.81 - Dementia in other diseases classified elsewhere with behavioral disturbance (5) Hypertension Current Visit: Yes Status: Acute Assessment and plan: per hx. BP controlled. Cont home BP medications Qualifiers: Hypertension type: essential hypertension Qualified Code(s): I10 - Essential (primary) hypertension (6) Hypothyroidism Current Visit: Yes Status: Acute Assessment and plan: TSH 0.036, free T4 normal. Suspect subclinical hypothyroidism. Continue home levothyroxine. Recommend repeat TSH levels and 68 weeks with PCP Qualifiers: Hypothyroidism type: acquired Qualified Code(s): E03.9 - Hypothyroidism, unspecified (7) Cachectic Current Visit: Yes Status: Acute Assessment and plan: BMI 16.9; nutrition consult (8) DVT prophylaxis Current Visit: Yes Status: Acute Assessment and plan: heparin - Time Spent With Patient Total time spent is greater than 50% in coordination of care (as documented) at patient's floor/unit and/or counseling patient: - Subjective Interval history: Seen and examined at bedside. Patient is new to me, information obtained from chart review and patient report although patient is poor historian and does not provide details. Seen earlier this morning; she is resting in bed. Says she is tired but feels well. Denies suicidal ideation. Has no thoughts of wanting to hurt herself or kill herself. Patient seen and examined later in the morning with family at bedside. Daughter who is POA states that she is concerned about patient's living arrangements; states that patient lives with HER-2 sons and [id number] all of which are meth addicts. Daughter like patient to go home with her for a couple days at discharge however patient is refusing. - Constitutional Vitals: Temp Pulse Resp BP Pulse Ox 98.2 F 73 19 167/79 96 01/28/18 07:50 01/28/18 07:50 01/28/18 07:50 01/28/18 07:50 01/28/18 07:50 General appearance: Present: disheveled, A&O X 2, no acute distress - Head Head exam: Present: atraumatic, normocephalic - Eye Eye exam: Present: PERRL, conjuntiva pink, sclera anicteric Pupils: Present: PERRL - Neck Neck exam general surgery: Present: supple, trachea midline. Absent: lymphadenopathy - Respiratory Respiratory exam: Present: CTAB. Absent: accessory muscle use, rales, rhonchi, wheezes - Cardiovascular Cardiovascular exam: Present: RRR, +S1, +S2. Absent: diastolic murmur, gallop, rubs, systolic murmur - GI/Abdominal GI/Abdominal exam: Present: normal bowel sounds, soft, no peritoneal signs. Absent: distended, tenderness - Extremities Exam Extremities exam: Present: warm, radial pulses palpable and symmetrical. Absent : calf tenderness, cyanotic, pedal edema - Neurological Exam Neurological exam: Present: CN II-XII intact, no focal deficits. Absent: pronater drift, facial droop, speech deficit - Skin Skin exam: Present: dry, rash - Other Additional findings: Psoriatic plaques scattered from head to toe. Right lower extremity with thick/ scaly yellow/white psoriatic plaques with superimposed cellulitis. Erythema, warmth and tenderness to bilateral legs, right worse than left. Internal Medicine: Result - Labs CBC & Chem 7: 01/28/18 07:03 01/28/18 07:03 Labs: Short CBC 01/28/18 Range/Units 07:03 WBC 4.6 (4.3-11.1) K/mcL Hgb 12.1 (11.5-15.4) g/dL Hct 36.7 (35.3-44.9) % Plt Count 194 (140-400) K/mcL Neutrophils # 2.2 (1.6-8.9) K/mcL BMP 01/28/18 07:03 Sodium 142 Potassium 4.1 Chloride 113 H Carbon Dioxide 25 BUN 19 Creatinine 0.78 Glucose 76 Calcium 8.5 L Consult Discharge Plan - Plan Additional Instructions: Patient is not suicidal or homicidal at this time patient and patient's family report no safety concerns from a psychiatric standpoint patient can be discharged would recommend rehabilitation for patient if needed. Referrals: NONE,PCP [Primary Care Provider] -
[2018-01-28] MEDS ORDERED: *HR* LORazepam 2 MG/ML VIAL IVP ONE ×2 (16:15)
[2018-01-28] MEDS ORDERED: Doxycycline 100 MG in 0.9 % Sodium Chloride Mini Bag 100 ML IVPB SCH (18:00)
--- NOTE | 2018-01-28 18:54 | Electrocardiograph Report ---
[facility] [facility] Test Date: 2018-01-27 Pat Name: Jacqueline Flanagan Department: 115 Room: 3A31 Gender: F Material Spreader: : [id number] Requested By: [id number] Order Number: [id number] Reading MD: Damián Luevano Measurements Intervals [place] Rate: 69 P: 72 CT: 125 QRS: 61 QRSD: 93 T: 57 QT: 396 QTc: 416 Interpretive Statements SINUS RHYTHM Electronically Signed On 01-28-2018 18:52:04 EDT by Damián Luevano
[2018-01-28] MEDS: Melatonin 3 MG TABLET PO SCH (21:06)
[2018-01-29] MEDS: CLOBETASOL PROPIONATE 15 GM TUBE TP SCH ×3 (01:08→20:45)
[2018-01-29] MEDS: Piperacillin/Tazobactam 3.375 GM in 0.9 % Sodium Chloride Mini Bag 100 ML IVPB SCH ×3 (01:08→16:34)
[2018-01-29] MEDS: *HR* Heparin 5,000 UNIT/ML VIAL SQ SCH ×3 (05:30→20:41)
[2018-01-29 06:12] LABS: Mean Corpuscular HGB Conc 32.4 g/dL (31.6-35.5); Mean Corpuscular Hemoglobin 30.4 pg (28.0-33.3); Mean Corpuscular Volume 93.7 fL (83.0-100.0); Mean Platelet Volume 9.3 fL (9.4-12.4); Platelet Count 187 K/mcL (140-400); Red Blood Count 3.95 M/mcL (3.82-4.97); Red Cell Distribution Width 13.2 % (11.5-14.5)
[2018-01-29 06:31] LABS: BUN/Creatinine Ratio 23 (6-26); Blood Urea Nitrogen 18 mg/dL (8-23); Calcium 8.7 mg/dL (8.6-10.3); Carbon Dioxide 25 mEq/L (23-29); Chloride 111 mEq/L (98-107); Glucose 84 mg/dL (70-105); Osmolality,Calculated 291 (280-300); Sodium 140 mEq/L (136-145); eGFR For Non-African Americans > 60 (> 60)
--- NOTE | 2018-01-29 16:39 | Internal Med Progress Note ---
Date of Encounter: 01/29/18 Time of Encounter: 16:32 - Assessment and plan (1) Cellulitis of right leg Current Visit: Yes Status: Acute Assessment and plan: Patient presented with significant erythema and warmth and tenderness of the lower extremities with the right worse than the left per documentation -The patient has what appears to be moderate to severe plaque psoriasis throughout her body worse on her anterior shins; currently the patient is not having tenderness or much warmth to these areas to the cellulitis appears to be improving; the area still seems very erythematous however I believe that a significant amount of this is probably just due to her uncontrolled plaque psoriasis. -Patient is on IV vancomycin and Zosyn; will likely transition to oral antibiotics tomorrow -We will check CBC in a.m. (2) Suicidal ideation Current Visit: Yes Status: Acute Assessment and plan: Apparently made SI comments in the ED. Evaluated by psychiatry who did not feel patient was arm/risk to self or others. (3) Plaque psoriasis Current Visit: Yes Status: Acute Assessment and plan: Patient appears to have moderate to severe plaque psoriasis throughout her body with extensive involvement of her anterior shins and hands with other plaques located on her elbows and face. -The uncontrolled psoriasis is likely contributing to the cellulitis as the patient seems to scratch these plaques frequently -Continue topical clobetasol however not to be Applied to the face -We will need to follow up with rheumatology as an outpatient (4) UTI (urinary tract infection), uncomplicated Current Visit: Yes Status: Acute Assessment and plan: Urinalysis revealed moderate leukocyte esterase with 30-50 white blood cells and many bacteria and no squamous cells; -Urine culture is pending; I spoke to microbiology who states that the culture is still being evaluated but does not look impressive -Patient is currently on IV Zosyn for the cellulitis will continue for now as patient is afebrile with no leukocytosis -Will follow up on culture and transition to orals a possible for a short course or discontinue antibiotics if no growth (5) Hypertension Current Visit: Yes Status: Acute Assessment and plan: Essential hypertension -Continue meds -Blood pressure stable Qualifiers: Hypertension type: essential hypertension Qualified Code(s): I10 - Essential (primary) hypertension (6) Hypothyroidism Current Visit: Yes Status: Acute Assessment and plan: TSH 0.036, free T4 normal. -Continue levothyroxine -Repeat TSH as an outpatient Qualifiers: Hypothyroidism type: acquired Qualified Code(s): E03.9 - Hypothyroidism, unspecified (7) Dementia Current Visit: Yes Status: Acute Assessment and plan: 01/28/18-(from previous provider) has known hx dementia per daughter with known episodes of combative behavior. Head CT with chronic, age-appropriate changes. Appears neurologically intact. Alert and oriented however mentation appears to fluctuate and patient does have periods of aggressive/combative behavior. Daughter at bedside and his POA; verbalizes concern for patient's home situation as patient lives with 2 sons and [id number] who are drug addicts. Daughter/POA would like patient to discharge home with her for a couple days however patient is refusing at this time. Patient was deemed not to be a risk to self or others by psychiatry however I do not feel patient has decision-making capacity at this time. Continue one-to-one sitter. Social work consult. PT/OT consult. -01/29/18-evaluation today the patient as described in my physical exam and history seems to have erratic thoughts and speech and her orientation and alertness changes rapidly; based on this and her perceived inability to understand her current situation, I do not believe that she is capable or has the capacity to make her own safe medical decisions. I would recommend deferment of medical decisions to the patient's power of sports attorney. Qualifiers: Dementia type: Alzheimer's disease Alzheimer's disease onset: unspecified onset Dementia behavioral disturbance: with behavioral disturbance Qualified Code(s): G30.9 - Alzheimer's disease, unspecified; F02.81 - Dementia in other diseases classified elsewhere with behavioral disturbance (8) Cachectic Current Visit: Yes Status: Acute Assessment and plan: BMI 16.9; nutrition consult (9) DVT prophylaxis Current Visit: Yes Status: Acute Assessment and plan: heparin sq (10) Malnutrition of moderate degree Current Visit: Yes Status: Acute Assessment and plan: She with cachexia and BMI 16.9 - Time Spent With Patient Total time spent is greater than 50% in coordination of care (as documented) at patient's floor/unit and/or counseling patient: 25 - 35 minutes - Subjective Interval history: Patient seen and examined at bedside. Patient had no acute overnight events. Patient upon evaluation is very inappropriate; patient laughs in the middle of sentences, she is unable to answer all questions, speaks erratically, immediately after explained to the patient that she is in the hospital due to an infection of her legs, she has questions in the hospital. I told her that she had an infection that needed IV antibiotics and that she needs to be in the hospital and immediately she states that she needs to get up and walk around and then asks why shes here. Patient does deny any complaints however. - Constitutional Vitals: Temp Pulse Resp BP Pulse Ox 97.8 F 84 15 127/71 99 01/29/18 14:49 01/29/18 14:49 01/29/18 14:49 01/29/18 14:49 01/29/18 14:49 General appearance: Present: disheveled, A&O X 2, no acute distress Exam: Constitutional: No acute distress, Alert Psych: AAO x 1-3 depending on the time and cooperation; patient is speaking inappropriately and continues to have tangential speech, she does not seem to understand what I am telling her HEENT: NCAT, EOMI; patient has psoriasis plaques on face Cardio: regular rate and rhythm, +s1s2, no murmurs/rubs/ronchi Resp: clear to ascultation bilaterally, no wheezes/rales/ronchi Abd: soft, non tender/non distended, positive bowel sounds, no gaurding/reboud/ ridgitity Extremities: Patient has moderate to severe plaque psoriasis involving her bilateral hands and elbows and extensively on her bilateral shins; there is significant erythema on the basis of her machado plaques with right lower machado being worse than the left; cellulitis appears to be improving and I believe the majority of the erythema is due to her underlying plaque psoriasis Neuro: Patient has no focal deficits and moves extremities symmetrically Internal Medicine: Result - Labs CBC & Chem 7: 01/29/18 05:55 01/29/18 05:55 Labs: Short CBC 01/29/18 Range/Units 05:55 WBC 5.1 (4.3-11.1) K/mcL Hgb 12.0 (11.5-15.4) g/dL Hct 37.0 (35.3-44.9) % Plt Count 187 (140-400) K/mcL BMP 01/29/18 05:55 Sodium 140 Potassium 4.0 Chloride 111 H Carbon Dioxide 25 BUN 18 Creatinine 0.78 Glucose 84 Calcium 8.7 Consult Discharge Plan - Plan Additional Instructions: Patient is not suicidal or homicidal at this time patient and patient's family report no safety concerns from a psychiatric standpoint patient can be discharged would recommend rehabilitation for patient if needed. Referrals: Paul Baig DO [Primary Care Provider] -
[2018-01-29] MEDS ORDERED: Aminoglycoside Consult 1 EACH MC ONE (17:32)
[2018-01-29] MEDS ORDERED: *HR* LORazepam 2 MG/ML VIAL IVP ONE (19:58)
[2018-01-29] MEDS: Melatonin 3 MG TABLET PO SCH (20:20)
[2018-01-29] MEDS: Nicotine 14 MG PATCH.TD24 TD SCH (20:38)
[2018-01-30] MEDS: Piperacillin/Tazobactam 3.375 GM in 0.9 % Sodium Chloride Mini Bag 100 ML IVPB SCH ×2 (00:24→08:55)
[2018-01-30] MEDS: *HR* Heparin 5,000 UNIT/ML VIAL SQ SCH ×3 (05:33→21:24)
[2018-01-30 06:53] LABS: Basophils % 0.7 %; Eosinophils # 0.3 K/mcL (0.0-0.6); Eosinophils % 5.2 %; Hematocrit 35.9 % (35.3-44.9); Hemoglobin 11.9 g/dL (11.5-15.4); Immature Granulocytes % 0.2 % (0-4); Mean Corpuscular HGB Conc 33.1 g/dL (31.6-35.5); Mean Corpuscular Hemoglobin 30.9 pg (28.0-33.3); Mean Corpuscular Volume 93.2 fL (83.0-100.0); Mean Platelet Volume 9.6 fL (9.4-12.4); Monocytes # 0.5 K/mcL (0.0-1.3); Monocytes % 8.5 %; Neutrophils # 3.2 K/mcL (1.6-8.9); Platelet Count 192 K/mcL (140-400); Red Blood Count 3.85 M/mcL (3.82-4.97); Red Cell Distribution Width 13.2 % (11.5-14.5); Segmented Neutrophils % 52.4 %
[2018-01-30 07:11] LABS: BUN/Creatinine Ratio 18 (6-26); Blood Urea Nitrogen 14 mg/dL (8-23); Calcium 8.6 mg/dL (8.6-10.3); Carbon Dioxide 25 mEq/L (23-29); Chloride 107 mEq/L (98-107); Glucose 82 mg/dL (70-105); Osmolality,Calculated 290 (280-300); Potassium 3.9 mEq/L (3.5-5.1); Sodium 140 mEq/L (136-145); eGFR For Non-African Americans > 60 (> 60)
[2018-01-30] MEDS: CLOBETASOL PROPIONATE 15 GM TUBE TP SCH ×2 (08:55→21:32)
--- NOTE | 2018-01-30 11:31 | Internal Med Progress Note ---
Date of Encounter: 01/30/18 Time of Encounter: 11:29 - Assessment and plan (1) Cellulitis of right leg Current Visit: Yes Status: Acute Assessment and plan: Patient presented with significant erythema and warmth and tenderness of the lower extremities with the right worse than the left per documentation -The patient has what appears to be moderate to severe plaque psoriasis throughout her body worse on her anterior shins; currently the patient is not having tenderness or much warmth to these areas; cellulitis is improving; the area still seems very erythematous however I believe that a significant amount of this is probably just due to her uncontrolled plaque psoriasis and I do not expect that to improve with antibiotics. -We will discontinue vancomycin and Zosyn -We will change to by mouth Keflex and doxycycline -No need for further laboratory studies; as the patient is medically ready for discharge however will be awaiting ECF placement (2) Suicidal ideation Current Visit: Yes Status: Acute Assessment and plan: Apparently made SI comments in the ED. Evaluated by psychiatry who did not feel patient was arm/risk to self or others. (3) Plaque psoriasis Current Visit: Yes Status: Acute Assessment and plan: Patient appears to have moderate to severe plaque psoriasis throughout her body with extensive involvement of her anterior shins and hands with other plaques located on her elbows and face. -The uncontrolled psoriasis is likely contributing to the cellulitis as the patient seems to scratch these plaques frequently; cellulitis is improving -Continue topical clobetasol however not to be Applied to the face -We will need to follow up with rheumatology as an outpatient (4) UTI (urinary tract infection), uncomplicated Current Visit: Yes Status: Acute Assessment and plan: Urinalysis revealed moderate leukocyte esterase with 30-50 white blood cells and many bacteria and no squamous cells; -Urine culture is pending; I spoke to microbiology who states that the culture is still being evaluated but does not look impressive -culture Revealed no growth -IV vancomycin and Zosyn will be discontinued today however the patient will remain on oral antibiotics for another few days for her lower extremity cellulitis (5) Hypertension Current Visit: Yes Status: Acute Assessment and plan: Essential hypertension -Continue meds -Blood pressure stable Qualifiers: Hypertension type: essential hypertension Qualified Code(s): I10 - Essential (primary) hypertension (6) Hypothyroidism Current Visit: Yes Status: Acute Assessment and plan: TSH 0.036, free T4 normal. -Continue levothyroxine -Repeat TSH as an outpatient Qualifiers: Hypothyroidism type: acquired Qualified Code(s): E03.9 - Hypothyroidism, unspecified (7) Dementia Current Visit: Yes Status: Acute Assessment and plan: 01/28/18-(from previous provider) has known hx dementia per daughter with known episodes of combative behavior. Head CT with chronic, age-appropriate changes. Appears neurologically intact. Alert and oriented however mentation appears to fluctuate and patient does have periods of aggressive/combative behavior. Daughter at bedside and his POA; verbalizes concern for patient's home situation as patient lives with 2 sons and [id number] who are drug addicts. Daughter/POA would like patient to discharge home with her for a couple days however patient is refusing at this time. Patient was deemed not to be a risk to self or others by psychiatry however I do not feel patient has decision-making capacity at this time. Continue one-to-one sitter. Social work consult. PT/OT consult. -01/29/18-evaluation today the patient as described in my physical exam and history seems to have erratic thoughts and speech and her orientation and alertness changes rapidly; based on this and her perceived inability to understand her current situation, I do not believe that she is capable or has the capacity to make her own safe medical decisions. I would recommend deferment of medical decisions to the patient's power of finance attorney. -01/29/18-patient more cooperative however I still do not believe that she has the capacity to make her own seek medical decisions. Qualifiers: Dementia type: Alzheimer's disease Alzheimer's disease onset: unspecified onset Dementia behavioral disturbance: with behavioral disturbance Qualified Code(s): G30.9 - Alzheimer's disease, unspecified; F02.81 - Dementia in other diseases classified elsewhere with behavioral disturbance (8) Cachectic Current Visit: Yes Status: Acute Assessment and plan: BMI 16.9; nutrition consult (9) DVT prophylaxis Current Visit: Yes Status: Acute Assessment and plan: heparin sq (10) Malnutrition of moderate degree Current Visit: Yes Status: Acute Assessment and plan: She with cachexia and BMI 16.9 - Time Spent With Patient Total time spent is greater than 50% in coordination of care (as documented) at patient's floor/unit and/or counseling patient: 25 - 35 minutes - Subjective Interval history: Patient seen and examined at bedside. Patient had no acute overnight events. Patient denies any complaints. Patient continues to be an appropriate during conversation and does not seem to understand the reason she is in the hospital. Patient denies any chest pain, shortness of breath, nausea, vomiting. Patient denies any pain in her feet and says her neighbors caused her feet look red. - Constitutional Vitals: Temp Pulse Resp BP Pulse Ox 98.2 F 79 14 157/75 96 01/30/18 07:28 01/30/18 07:28 01/30/18 07:28 01/30/18 07:28 01/30/18 07:28 General appearance: Present: disheveled, A&O X 2, no acute distress Exam: Constitutional: No acute distress, Alert Psych: AAO x 2 this am however this fluctuates frequently; patient continues to have tangential speech HEENT: NCAT, EOMI; patient has psoriasis plaques on face Cardio: regular rate and rhythm, +s1s2, no murmurs/rubs/ronchi Resp: clear to ascultation bilaterally, no wheezes/rales/ronchi Abd: soft, non tender/non distended, positive bowel sounds, no gaurding/reboud/ ridgitity Extremities: Patient has moderate to severe plaque psoriasis involving her bilateral hands and elbows and extensively on her bilateral shins; there is significant erythema on the basis of her machado plaques with right lower machado being worse than the left; cellulitis continues to improve and I believe the majority of the erythema that is remaining is due to her underlying plaque psoriasis Neuro: Patient has no focal deficits and moves extremities symmetrically Internal Medicine: Result - Labs CBC & Chem 7: 01/30/18 06:33 01/30/18 06:33 Labs: Short CBC 01/30/18 Range/Units 06:33 WBC 6.0 (4.3-11.1) K/mcL Hgb 11.9 (11.5-15.4) g/dL Hct 35.9 (35.3-44.9) % Plt Count 192 (140-400) K/mcL Neutrophils # 3.2 (1.6-8.9) K/mcL BMP 01/30/18 06:33 Sodium 140 Potassium 3.9 Chloride 107 Carbon Dioxide 25 BUN 14 Creatinine 0.80 Glucose 82 Calcium 8.6 Consult Discharge Plan - Plan Additional Instructions: Patient is not suicidal or homicidal at this time patient and patient's family report no safety concerns from a psychiatric standpoint patient can be discharged would recommend rehabilitation for patient if needed. Referrals: Paul Baig DO [Primary Care Provider] -
[2018-01-30] MEDS: cephALEXin 500 MG CAPSULE PO SCH ×2 (13:19→21:18)
[2018-01-30] MEDS: Doxycycline 100 MG CAPSULE PO SCH (21:18)
[2018-01-30] MEDS: Nicotine 14 MG PATCH.TD24 TD SCH (21:19)
[2018-01-30] MEDS: Melatonin 3 MG TABLET PO SCH (21:19)
[2018-01-31] MEDS: *HR* Heparin 5,000 UNIT/ML VIAL SQ SCH ×3 (05:54→22:10)
[2018-01-31 06:31] LABS: Hematocrit 36.5 % (35.3-44.9); Hemoglobin 12.3 g/dL (11.5-15.4); Mean Corpuscular HGB Conc 33.7 g/dL (31.6-35.5); Mean Corpuscular Hemoglobin 31.8 pg (28.0-33.3); Mean Corpuscular Volume 94.3 fL (83.0-100.0); Mean Platelet Volume 9.9 fL (9.4-12.4); Platelet Count 195 K/mcL (140-400); Red Blood Count 3.87 M/mcL (3.82-4.97); Red Cell Distribution Width 13.1 % (11.5-14.5)
[2018-01-31 06:51] LABS: BUN/Creatinine Ratio 15 (6-26); Blood Urea Nitrogen 11 mg/dL (8-23); Calcium 8.9 mg/dL (8.6-10.3); Carbon Dioxide 26 mEq/L (23-29); Chloride 109 mEq/L (98-107); Glucose 74 mg/dL (70-105); Osmolality,Calculated 288 (280-300); Potassium 3.9 mEq/L (3.5-5.1); Sodium 140 mEq/L (136-145); eGFR For Non-African Americans > 60 (> 60)
[2018-01-31] MEDS: Doxycycline 100 MG CAPSULE PO SCH ×2 (09:24→22:09)
[2018-01-31] MEDS: cephALEXin 500 MG CAPSULE PO SCH ×2 (09:25→22:10)
[2018-01-31] MEDS: CLOBETASOL PROPIONATE 15 GM TUBE TP SCH ×2 (09:25→22:09)
--- NOTE | 2018-01-31 12:47 | Internal Med Progress Note ---
Date of Encounter: 01/31/18 Time of Encounter: 12:44 - Assessment and plan (1) Cellulitis of right leg Current Visit: Yes Status: Acute Assessment and plan: Patient presented with significant erythema and warmth and tenderness of the lower extremities with the right worse than the left per documentation -The patient has what appears to be moderate to severe plaque psoriasis throughout her body worse on her anterior shins; currently the patient is not having tenderness or much warmth to these areas; cellulitis is improving and I believe nearly resolved; the area still seems very erythematous however I believe that a significant amount of this is probably just due to her uncontrolled plaque psoriasis and I do not expect that to improve with antibiotics. -Continue PO Keflex and doxycycline -No need for further laboratory studies; as the patient is medically ready for discharge however will be awaiting ECF placement (2) Suicidal ideation Current Visit: Yes Status: Acute Assessment and plan: Apparently made SI comments in the ED. Evaluated by psychiatry who did not feel patient was arm/risk to self or others. (3) Plaque psoriasis Current Visit: Yes Status: Acute Assessment and plan: Patient appears to have moderate to severe plaque psoriasis throughout her body with extensive involvement of her anterior shins and hands with other plaques located on her elbows and face. -The uncontrolled psoriasis is likely contributing to the cellulitis as the patient seems to scratch these plaques frequently; cellulitis is improving -Continue topical clobetasol however not to be Applied to the face -We will need to follow up with rheumatology as an outpatient (4) UTI (urinary tract infection), uncomplicated Current Visit: Yes Status: Acute Assessment and plan: Urinalysis revealed moderate leukocyte esterase with 30-50 white blood cells and many bacteria and no squamous cells; -Urine culture is pending; I spoke to microbiology who states that the culture is still being evaluated but does not look impressive -culture Revealed no growth -Patient is on oral antibiotics for another few days for her lower extremity cellulitis (5) Hypertension Current Visit: Yes Status: Acute Assessment and plan: Essential hypertension -Continue meds -Blood pressure stable Qualifiers: Hypertension type: essential hypertension Qualified Code(s): I10 - Essential (primary) hypertension (6) Hypothyroidism Current Visit: Yes Status: Acute Assessment and plan: TSH 0.036, free T4 normal. -Continue levothyroxine -Repeat TSH as an outpatient Qualifiers: Hypothyroidism type: acquired Qualified Code(s): E03.9 - Hypothyroidism, unspecified (7) Dementia Current Visit: Yes Status: Acute Assessment and plan: 01/28/18-(from previous provider) has known hx dementia per daughter with known episodes of combative behavior. Head CT with chronic, age-appropriate changes. Appears neurologically intact. Alert and oriented however mentation appears to fluctuate and patient does have periods of aggressive/combative behavior. Daughter at bedside and his POA; verbalizes concern for patient's home situation as patient lives with 2 sons and [id number] who are drug addicts. Daughter/POA would like patient to discharge home with her for a couple days however patient is refusing at this time. Patient was deemed not to be a risk to self or others by psychiatry however I do not feel patient has decision-making capacity at this time. Continue one-to-one sitter. Social work consult. PT/OT consult. -01/29/18-evaluation today the patient as described in my physical exam and history seems to have erratic thoughts and speech and her orientation and alertness changes rapidly; based on this and her perceived inability to understand her current situation, I do not believe that she is capable or has the capacity to make her own safe medical decisions. I would recommend deferment of medical decisions to the patient's power of contract attorney. -01/30/18-patient more cooperative however I still do not believe that she has the capacity to make her own seek medical decisions -01/31/18 -no change from above; awaiting ECF placement Qualifiers: Dementia type: Alzheimer's disease Alzheimer's disease onset: unspecified onset Dementia behavioral disturbance: with behavioral disturbance Qualified Code(s): G30.9 - Alzheimer's disease, unspecified; F02.81 - Dementia in other diseases classified elsewhere with behavioral disturbance (8) Cachectic Current Visit: Yes Status: Acute Assessment and plan: BMI 16.9; nutrition consult (9) DVT prophylaxis Current Visit: Yes Status: Acute Assessment and plan: heparin sq (10) Malnutrition of moderate degree Current Visit: Yes Status: Acute Assessment and plan: She with cachexia and BMI 16.9 - Time Spent With Patient Total time spent is greater than 50% in coordination of care (as documented) at patient's floor/unit and/or counseling patient: 25 - 35 minutes - Subjective Interval history: Patient seen and examined at bedside. Patient had no acute overnight events. Patient denies any complaints. Patient denies any chest pain, shortness of breath, nausea, vomiting. She continues to have an odd demeanor during examination and again asked why she is in the hospital; explained her condition to her again. She has been afebrile. - Constitutional Vitals: Temp Pulse Resp BP Pulse Ox 98.1 F 99 14 150/83 93 01/31/18 11:02 01/31/18 11:02 01/31/18 11:02 01/31/18 11:02 01/31/18 11:02 General appearance: Present: disheveled, A&O X 2, no acute distress Exam: Constitutional: No acute distress, Alert Psych: AAO x 2 this am however this fluctuates frequently; less tangental speech today HEENT: NCAT, EOMI; patient has psoriasis plaques on face Cardio: regular rate and rhythm, +s1s2, no murmurs/rubs/ronchi Resp: clear to ascultation bilaterally Abd: soft, non tender/non distended, positive bowel sounds, no gaurding/reboud/ ridgitity Extremities: Patient has moderate to severe plaque psoriasis involving her bilateral hands and elbows and extensively on her bilateral shins; there is significant erythema on the basis of her machado plaques with right lower machado being worse than the left; erythema continues to improve slightly on PO antibiotics however I do not anticipate much more improvement as I believe majority of her erythema is due to her plaque psoriasis Neuro: Patient has no focal deficits and moves extremities symmetrically Internal Medicine: Result - Labs CBC & Chem 7: 01/31/18 06:04 01/31/18 06:04 Labs: Short CBC 01/31/18 Range/Units 06:04 WBC 5.0 (4.3-11.1) K/mcL Hgb 12.3 (11.5-15.4) g/dL Hct 36.5 (35.3-44.9) % Plt Count 195 (140-400) K/mcL BMP 01/31/18 06:04 Sodium 140 Potassium 3.9 Chloride 109 H Carbon Dioxide 26 BUN 11 Creatinine 0.72 Glucose 74 Calcium 8.9 Consult Discharge Plan - Plan Additional Instructions: Patient is not suicidal or homicidal at this time patient and patient's family report no safety concerns from a psychiatric standpoint patient can be discharged would recommend rehabilitation for patient if needed. Referrals: Paul Baig DO [Primary Care Provider] -
[2018-01-31] MEDS: Melatonin 3 MG TABLET PO SCH (22:09)
[2018-01-31] MEDS: Nicotine 14 MG PATCH.TD24 TD SCH (22:10)
[2018-02-01 01:45] LABS: Hematocrit 36.1 % (35.3-44.9); Hemoglobin 11.9 g/dL (11.5-15.4); Mean Corpuscular Hemoglobin 30.7 pg (28.0-33.3); Mean Platelet Volume 9.8 fL (9.4-12.4); Platelet Count 204 K/mcL (140-400); Red Blood Count 3.88 M/mcL (3.82-4.97); Red Cell Distribution Width 13.2 % (11.5-14.5)
[2018-02-01 02:05] LABS: BUN/Creatinine Ratio 21 (6-26); Blood Urea Nitrogen 17 mg/dL (8-23); Calcium 9.1 mg/dL (8.6-10.3); Carbon Dioxide 25 mEq/L (23-29); Chloride 107 mEq/L (98-107); Glucose 135 mg/dL (70-105); Osmolality,Calculated 290 (280-300); Potassium 3.8 mEq/L (3.5-5.1); Sodium 138 mEq/L (136-145); eGFR For Non-African Americans > 60 (> 60)
[2018-02-01] MEDS: *HR* Heparin 5,000 UNIT/ML VIAL SQ SCH ×2 (05:54→15:03)
[2018-02-01] MEDS: cephALEXin 500 MG CAPSULE PO SCH (09:04)
[2018-02-01] MEDS: Doxycycline 100 MG CAPSULE PO SCH (09:04)
[2018-02-01] MEDS: CLOBETASOL PROPIONATE 15 GM TUBE TP SCH (09:04)
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
--- NOTE | 2018-02-01 13:59 | Physician Discharge Referral ---
ExtendedCare Referral Info Transfer To: ECF Provider in Charge after Transfer: PCP Institutional Level of Care: Skilled (Nursing) - Diagnosis (1) Cellulitis of right leg Status: Acute (2) Suicidal ideation Status: Acute (3) Plaque psoriasis Status: Acute (4) UTI (urinary tract infection), uncomplicated Status: Acute (5) Hypertension Status: Acute (6) Hypothyroidism Status: Acute (7) Dementia Status: Acute (8) Cachectic Status: Acute (9) DVT prophylaxis Status: Acute (10) Malnutrition of moderate degree Status: Acute - Transfer Medications Prescriptions: cephALEXin [Keflex] 500 mg PO BID #11 capsule Clobetasol Propionate [Temovate 0.05%] 1 appl TP BID 5 Days #30 gm Doxycycline 100 mg PO BID 5 Days #11 capsule Home Medications: Buspirone HCl [Buspar] 10 mg PO BID 01/27/18 [History] Levothyroxine [Synthroid] 100 mcg PO QAM 01/27/18 [History] Lisinopril [Zestril] 5 mg PO DAILY 01/27/18 [History] Melatonin 5 mg PO HS 01/27/18 [History] Clobetasol Propionate [Temovate 0.05%] 1 appl TP BID 5 Days #30 gm 02/01/18 [Rx] Doxycycline 100 mg PO BID 5 Days #11 capsule 02/01/18 [Rx] cephALEXin [Keflex] 500 mg PO BID #11 capsule 02/01/18 [Rx] Allergies/Adverse Reactions: 3 Allergy/AdvReac Type Severity Reaction Status Date / Time aspirin AdvReac Nausea Verified 08/20/16 21:36 - Respiratory Orders Smoking Cessation: Smoking cessation has been advised. For more information, call the [place] Tobacco Quit Line at 1-866-MTJCNOW. CERTIFICATION: I certify that the transfer of the above named patient to an Extended Care Facility is necessary for the continuing treatment of the diagnosis listed. The above information is true and accurate reflection of patient's current condition. Confidential - Redisclosure prohibited without a patient's written consent.
== END 2018-02-01 16:05 ==
LOC: 3ANU 13:29 → EMEROO 13:29 → SUATTDRO 17:31 → 3ANU 18:50
PROVIDERS: ADMIT Internal Medicine; ATTEND Internal Medicine